=== PATIENT | female | born 1945 | race Caucasian/White ===

== ENCOUNTER → 2017-09-22 | Outpatient (CLI) | payer MEDICARE ==
--- NOTE | 2017-09-22 11:04 | Diagnostic Imaging Report ---
Left knee MRI without contrast. History: Meniscus tear. Knee pain. Pain not responding to conservative management. Comparison: None. Technique: Multiplanar multi-sequence MRI of the knee without contrast. Findings: Medial compartment: There is mid substance degeneration of the medial meniscus with a predominantly horizontally oriented tear involving the posterior horn and body segments best seen on coronal image 16. The medial compartmental articular cartilage surfaces are thinned with regions of fraying and fissuring. The medial collateral ligament complex is intact. Lateral compartment: No meniscal tear or cartilage abnormality. The LCL complex is normal. Intercondylar notch: The ACL and PCL are intact. Patellofemoral compartment: No chondromalacia or patellar dislocation. Extensor mechanism: The quadriceps and patellar tendons are normal. Other findings: There is a joint effusion and synovitis. There is no acute fracture, subluxation or avascular necrosis. There is a small enchondroma in the distal femur. There is a small Marie's cyst. IMPRESSION: Medial meniscus tear with mild degenerative arthrosis in the medial compartment of the knee. Signed by: Dr. Fitz Hurtado M.D. on 09/22/2017 11:00 AM
== END | disposition home or self-care (01) ==
LOC: MRI 08:34
PROVIDERS: ATTEND Family Medicine
DX: M23.301 Other meniscus derangements, unspecified lateral meniscus, left knee (principal); M25.562 Pain in left knee; G89.29 Other chronic pain; S83.242A Other tear of medial meniscus, current injury, left knee, initial encounter; M17.12 Unilateral primary osteoarthritis, left knee

== ENCOUNTER → 2017-11-04 | Day surgery (SDC) | payer MEDICARE ==
[2017-11-02 11:53] LABS: BASOPHILS % 0.6 % (0.0-1.0); EOSINOPHILS # (AUTO) 0.1 (0.0-0.4); EOSINOPHILS % 1.4 % (0.0-6.0); HEMATOCRIT 38.5 % (34.2-44.1); HEMOGLOBIN 12.6 g/dL (12.0-16.0); LYMPHOCYTES # (AUTO) 1.7 (1.0-3.2); LYMPHOCYTES % 26.5 % (18.0-39.1); MEAN CORPUSCULAR HEMOGLOBIN 31.7 pg (28-32); MEAN CORPUSCULAR HGB CONC 32.7 g/dL (31-35); MEAN CORPUSCULAR VOLUME 96.7 fL (81-99); MONOCYTES # (AUTO) 0.6 (0.2-0.8); NEUTROPHILS % 62.2 % (38.7-80.0); PLATELET COUNT 168 x10e3/uL (140-360); RED BLOOD COUNT 3.98 x10e6/uL (3.6-5.1); RED CELL DISTRIBUTION WIDTH 13.2 % (11.7-14.4)
--- NOTE | 2017-11-02 12:54 | Diagnostic Imaging Report ---
PROCEDURE: Frontal and lateral views of the chest. COMPARISON: None. INDICATIONS: PREOPERATIVE CHEST XRAY FOR KNEE SURGERY FINDINGS: Lines/tubes: None. Lungs: The lungs are well inflated and clear. There is no evidence of pneumonia or pulmonary edema. Pleura: There is no pleural effusion or pneumothorax. Heart and mediastinum: The heart and the mediastinum are normal. Bones: No acute bony abnormality. IMPRESSION: 1. No acute cardiopulmonary disease. Dictated by: Vincent Guevara M.D. on 11/02/2017 at 13:00 Electronically approved by: Vincent Guevara M.D. on 11/02/2017 at 13:00
[~2017-11-04] MED LIST: ASPIR 8181 MG PO; BUPIVACAINE 0.5%/EPI 30 ML SDV INJ ONE; CEFAZOLIN SOD 2 GM/D5W 50ML 50 ML IV ONE; CRESTOR20 MG PO; DEXAMETHASONE SOD PHOS INJ 4 MG/ML VIAL ONE; FENTANYL CITRATE/PF 100MCG/2 ML INJ ONE; LIDOCAINE HCL 2% LOCAL INJ 5 ML SDV VIAL INJ ONE; METOPROLOL SUCC25 MG PO; MIDAZOLAM HCL 2 MG/2 ML VIAL ONE; MILK THISTLE PO; MULTIVITAMINS1 EAC7 PO; OMEGA 3 KRILL PO; ONDANSETRON HCL INJ 2 MG/ML VIAL ONE; PROPOFOL IV EMULSION 10 MG/ML 20 ML VIAL ONE; SEVOFLURANE INHAL SOLN 250 ML PEN BTL ONE; VITAMIN D31000 UNIT PO; ZOLPIDEM PO
--- NOTE | 2017-11-10 10:19 | Operative Report ---
DATE OF PROCEDURE: November 04, 2017 PREOPERATIVE DIAGNOSES 1. Left knee medial meniscus tear. 2. Left knee degenerative joint disease of the knee. POSTOPERATIVE DIAGNOSES 1. Left knee medial meniscus tear. 2. Left knee degenerative joint disease of the knee. PROCEDURES PERFORMED 1. Left knee examination under anesthesia. 2. Left knee arthroscopy. 3. Left knee partial medial meniscectomy. 4. 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 MANAGER PROGRAMS: There was no community relations assistant. ANESTHESIA: General endotracheal intubation anesthesia. IV FLUIDS: Per the anesthesia record. DESCRIPTION OF PROCEDURE: Ms. Barlow was taken to the operating room and placed in the supine position on the operating table. Following the induction of general anesthesia as well as endotracheal intubation, the patient's left lower extremity was examined under anesthesia. She was found to have a mild effusion within the knee joint but an otherwise ligamentously stable knee. The patient's lower extremity was prepped and draped in the standard surgical fashion. A 2-portal technique was used to provide this patient arthroscopic evaluation of the knee joint. Examination of the suprapatellar pouch, medial and lateral gutters found no evidence of loose bodies. There was, however, evidence of chondromalacia of the patellar and trochlear surfaces. The scope was advanced in the medial compartment. Examination of the medial compartment demonstrated a torn medial meniscus. There was chondromalacia of the articulating surfaces. A combination of biting forceps and motorized shaver were used to resect the torn portion of meniscus. Chondroplasties of the medial femoral condyle and medial tibial plateau were performed at this time. The scope was then advanced in the intercondylar notch. Anterior cruciate ligament was identified and found to be intact. Scope was advanced in the lateral compartment, and there was chondromalacia of the lateral tibial plateau. A chondroplasty of the surface was performed. The scope was then placed in the suprapatellar pouch, and chondroplasties of the patella and trochlea were performed. The knee was deflated of its sterile normal saline. Each of the portal sites were closed using 4-0 nylon suture. The portal sites as well as the knee itself were injected with 0.5% Marcaine with epinephrine. Sterile dressings were applied. The patient was awakened and taken to the postanesthesia care unit in stable condition. Job#: [id number]
== END | disposition home or self-care (01) ==
LOC: OR 05:14
PROVIDERS: ATTEND Specialist
DX: S83.222A Peripheral tear of medial meniscus, current injury, left knee, initial encounter (principal); M17.12 Unilateral primary osteoarthritis, left knee; M22.42 Chondromalacia patellae, left knee; I10 Essential (primary) hypertension; I25.10 Atherosclerotic heart disease of native coronary artery without angina pectoris; X50.1XXA Overexertion from prolonged static or awkward postures, initial encounter; Y92.512 Supermarket, store or market as the place of occurrence of the external cause; Z01.810 Encounter for preprocedural cardiovascular examination; Z01.812 Encounter for preprocedural laboratory examination; Z01.818 Encounter for other preprocedural examination; Z79.82 Long term (current) use of aspirin; Z95.5 Presence of coronary angioplasty implant and graft; Z90.49 Acquired absence of other specified parts of digestive tract
CPT/HCPCS: 29881; 36415; 71046; 85025; 93005; J1100; J2001; J2250; J2405

== ENCOUNTER → 2019-10-07 | Outpatient (CLI) | payer MEDICARE ==
[~2019-10-07] MED LIST changes: -BUPIVACAINE 0.5%/EPI 30 ML SDV INJ ONE; -CEFAZOLIN SOD 2 GM/D5W 50ML 50 ML IV ONE; -DEXAMETHASONE SOD PHOS INJ 4 MG/ML VIAL ONE; -FENTANYL CITRATE/PF 100MCG/2 ML INJ ONE; -LIDOCAINE HCL 2% LOCAL INJ 5 ML SDV VIAL INJ ONE; -MIDAZOLAM HCL 2 MG/2 ML VIAL ONE; -ONDANSETRON HCL INJ 2 MG/ML VIAL ONE; -PROPOFOL IV EMULSION 10 MG/ML 20 ML VIAL ONE; -SEVOFLURANE INHAL SOLN 250 ML PEN BTL ONE
--- NOTE | 2019-10-10 12:58 | Diagnostic Imaging Report ---
EXAM: Focused Soft Tissue Ultrasound Evaluation of the right lower forearm and left calf INDICATION: ^[id number] ^1109 ^NODULE OF SKIN LEFT LOWER LEG COMPARISON: None TECHNIQUE: Freed scale, color Doppler images of the right lower forearm and left calf were obtained. FINDINGS: In the right forearm in the area of clinical interest there is a 1.4 x 0.5 x 1.0 cm simple anechoic cystic structure. No soft tissue mass. No significant findings in the left calf. IMPRESSION: 1.4cm simple anechoic cystic structure in the right forearm. No soft tissue mass in the right forearm or left calf. Signed by: Renny Woodward MD on 10/10/2019 12:55 PM
--- NOTE | 2019-10-10 12:58 | Diagnostic Imaging Report ---
EXAM: Focused Soft Tissue Ultrasound Evaluation of the right lower forearm and left calf INDICATION: ^[id number] ^1109 ^NODULE OF SKIN LEFT LOWER LEG COMPARISON: None TECHNIQUE: Freed scale, color Doppler images of the right lower forearm and left calf were obtained. FINDINGS: In the right forearm in the area of clinical interest there is a 1.4 x 0.5 x 1.0 cm simple anechoic cystic structure. No soft tissue mass. No significant findings in the left calf. IMPRESSION: 1.4cm simple anechoic cystic structure in the right forearm. No soft tissue mass in the right forearm or left calf. Signed by: Renny Woodward MD on 10/10/2019 12:55 PM
== END ==
LOC: US 10:38
PROVIDERS: ATTEND Family Medicine
DX: R22.42 Localized swelling, mass and lump, left lower limb (principal); R22.31 Localized swelling, mass and lump, right upper limb; E78.2 Mixed hyperlipidemia
CPT/HCPCS: 76882